=== PATIENT | male | born 1955 | race Caucasian/White ===

== ENCOUNTER 2017-11-21 17:15 | Observation (INO) | payer OTHER ==
--- NOTE | 2017-11-21 18:01 | EDPHY ---
H & P Time Seen by Provider: 11/21/17 18:00 HPI/ROS: Chief complaint. High blood pressure, bloody nose HPI. 61-year-old male presents emergency department with nose bleed. Nosebleed started last night and he was able to stop it. It recurred twice this afternoon. He went to his physician's office for nose bleed and was found to be hypertensive. He has no history of hypertension. However several weeks ago he tried to give blood and his blood pressure was 150/108 so he was declined. He does not take any blood pressure medication. He is not on blood thinners. He has had no recent trauma to his nose. No recent URI symptoms. Last nosebleed was many years ago. No headache, visual symptoms, chest pain, difficulty breathing, abdominal pain. ROS Constitutional. no fever/chills, no weakness Eyes. no problems with vision ENT. Nosebleed Cardiovascular. no chest pain Respiratory. no shortness of breath, no cough Abdominal. no abdominal pain, no nausea/vomiting, no diarrhea . no problems urinating MS. no calf pain/swelling, no neck/back pain, no joint pain Skin. no rash Lymph. no swollen glands Neuro. no headache, no dizziness, no difficulty walking or with speech Past Medical/Surgical History: Denies past medical history Social History: , nonsmoker, no alcohol Smoking Status: Never smoked Physical Exam: General Appearance: Alert well-developed male moderate distress vital signs show heart rate 106 and blood pressure 207/141 Eyes: Pupils equal and round no pallor or injection. ENT, bleeding from right nares Respiratory: There are no retractions, lungs are clear to auscultation. Cardiovascular: Regular rate and rhythm. Gastrointestinal: Abdomen is soft and nontender, no masses, bowel sounds normal. Neurological: Awake and alert, sensory and motor exams grossly normal. Skin: Warm and dry, no rashes. Musculoskeletal: Neck is supple nontender. Extremities symmetrical, full range of motion. Psychiatric: Patient is oriented X 3, there is no agitation. Constitutional: Initial Vital Signs Temperature (C) 36.3 C 11/21/17 17:19 Heart Rate 106 H 11/21/17 17:19 Respiratory Rate 16 11/21/17 17:19 Blood Pressure 207/141 H 11/21/17 17:19 O2 Sat (%) 96 11/21/17 17:19 O2 Delivery Mode Room Air Allergies/Adverse Reactions: No Known Allergies Allergy (Unverified 11/21/17 17:18) Home Medications: Medication Instructions Recorded Advil 11/21/17 Aspirin 11/21/17 Medical Decision Making Procedures: IV normal saline Clots are removed from patient's nose by the patient giving firm blow. 2 sprays of Jorge Luis-Synephrine nose spray placed in each nostril. Cotton ball soaked in cocaine solution is placed in each nostril. Visualization of the posterior pharynx shows no blood down the back of the throat. The cotton balls are removed. There is macerated tissue that is oozing on the medial septum right nares. No discrete area of bleeding to cauterize. A rhino rocket was placed. It is filled with 3 cc of normal saline. Bleeding is controlled ED Course/Re-evaluation: Re-evaluation at 6:20 a.m. P.m. Patient's blood pressure is 200/121. He will be given IV labetalol and drip. After the labetalol bolus his pressure is 160/100. He is placed on a drip. We will try to keep his diastolic about 95-100 currently. The patient, his , and I discussed treatment plan including recommendation for admission. He expresses understanding and agreement I consulted discussed case with Dr. Dale, hospitalist, who agrees to the admission I consulted discussed the case with Dr. Multani, ENT who will see the patient in consultation Differential Diagnosis: Nose bleed that is likely due to urgent hypertension. Otherwise no obvious end- organ failure. Bleeding from the nose is been controlled. Blood pressure has been controlled also - Data Points Laboratory Results: Laboratory Results 11/21/17 17:30 11/21/17 17:30 11/21/17 11/21/17 11/21/17 17:30 17:30 17:30 WBC 8.33 10^3/uL 10^3/uL (3.80-9.50) RBC 5.07 10^6/uL 10^6/uL (4.40-6.38) Hgb 16.1 g/dL g/dL (13.7-17.5) Hct 45.3 % % (40.0-51.0) MCV 89.3 fL fL (81.5-99.8) MCH 31.8 pg pg (27.9-34.1) MCHC 35.5 g/dL g/dL (32.4-36.7) RDW 12.4 % % (11.5-15.2) Plt Count 305 10^3/uL 10^3/uL (150-400) MPV 9.3 fL fL (8.7-11.7) Neut % (Auto) 63.9 % % (39.3-74.2) Lymph % (Auto) 22.4 % % (15.0-45.0) [place] % (Auto) 9.5 % % (4.5-13.0) Eos % (Auto) 3.0 % % (0.6-7.6) Baso % (Auto) 0.7 % % (0.3-1.7) Nucleat RBC Rel Count 0.0 % % (0.0-0.2) Absolute Neuts (auto) 5.32 10^3/uL 10^3/uL (1.70-6.50) Absolute Lymphs (auto) 1.87 10^3/uL 10^3/uL (1.00-3.00) Absolute Monos (auto) 0.79 10^3/uL 10^3/uL (0.30-0.80) Absolute Eos (auto) 0.25 10^3/uL 10^3/uL (0.03-0.40) Absolute Basos (auto) 0.06 10^3/uL 10^3/uL (0.02-0.10) Absolute Nucleated RBC 0.00 10^3/uL 10^3/uL (0-0.01) Immature Gran % 0.5 % % (0.0-1.1) Immature Gran # 0.04 10^3/uL 10^3/uL (0.00-0.10) PT 13.3 SEC SEC (12.0-15.0) INR 0.99 (0.83-1.16) APTT 28.7 SEC SEC (23.0-38.0) Sodium 142 mEq/L mEq/L (135-145) Potassium 3.9 mEq/L mEq/L (3.5-5.2) Chloride 107 mEq/L mEq/L (97-110) Carbon Dioxide 21 mEq/l L mEq/l (22-31) Anion Gap 14 mEq/L mEq/L (8-16) BUN 24 mg/dL H mg/dL (7-23) Creatinine 0.9 mg/dL mg/dL (0.7-1.3) Estimated GFR > 60 Glucose 91 mg/dL mg/dL (70-100) Calcium 9.2 mg/dL mg/dL (8.5-10.4) Troponin I 0.032 ng/mL ng/mL (0.000-0.034) Medications Given: Labetalol HCl 200 mg/ Sodium (Chloride) 200 mls @ 0 mls/hr IV CONT ISAURO; As Directed PRN Reason: Protocol Stop: 05/20/18 18:29 Last Admin: 11/21/17 19:28 Dose: 200 mls Discontinued Medications Sodium Chloride (Ns) 1,000 mls @ 0 mls/hr IV EDNOW ONE; Wide Open PRN Reason: Protocol Stop: 11/21/17 18:15 Last Admin: 11/21/17 19:03 Dose: 1,000 mls Labetalol HCl (Trandate Injection) 20 mg IVP EDNOW ONE Stop: 11/21/17 18:23 Last Admin: 11/21/17 19:02 Dose: 20 mg Oxymetazoline HCl (Afrin Nasal [place]) 2 sprays EACHNARE EDNOW ONE Stop: 11/21/17 18:16 Last Admin: 11/21/17 19:08 Dose: 2 spray Silver Nitrate/Potassium Nitrate (Silver Nitrate Applicator) 1 each TP EDNOW ONE Stop: 11/21/17 18:16 Last Admin: 11/21/17 19:08 Dose: 1 each Departure - Departure Disposition: [facility] Inpatient Acute Clinical Impression: Hypertensive urgency, Acute anterior epistaxis Condition: Good Referrals: Taryn Sanabria PA [Primary Care Provider] - As per Instructions
[2017-11-21] MEDS ORDERED: OXYMETAZOLINE 30 ML NASAL SPRAY ONE (18:10)
[2017-11-21] MEDS ORDERED: SILVER NITRATE APPLICATOR 1 APPL TP ONE ×2 (18:10→18:15)
[2017-11-21] MEDS ORDERED: COCAINE HCL 4% 4 ML BTL TP ONE ×2 (18:12→18:15)
[2017-11-21] MEDS ORDERED: NS 1,000 ML IV ONE (18:14)
[2017-11-21] MEDS ORDERED: OXYMETAZOLINE 30 ML NASAL SPRAY EACHNARE ONE (18:15)
[2017-11-21] MEDS ORDERED: LABETALOL HCL 5 MG/ML 20 ML MDV IVP ONE (18:22)
[2017-11-21 18:25] LABS: PLATELET COUNT 305 10^3/uL (150-400)
[2017-11-21] MEDS ORDERED: LABETALOL HCL 200 MG in D5W 200 ML IV SCH (18:30)
[2017-11-21 18:32] LABS: INR 0.99 (0.83-1.16); PROTIME(PATIENT) 13.3 SEC (12.0-15.0)
[2017-11-21] MEDS ORDERED: NS IV SCH (19:30)
[2017-11-21] MEDS ORDERED: LABETALOL HCL IV SCH (19:30)
--- NOTE | 2017-11-21 19:52 | CPEKG ---
Heart Rate: 67 RR Interval: 896 P-R Interval: 188 QRSD Interval: 106 QT Interval: 424 QTC Interval: 448 P Buxton: 33 QRS Buxton: -45 T Wave Buxton: 29 EKG Severity - ABNORMAL ECG - EKG Impression: SINUS RHYTHM EKG Impression: MULTIPLE ATRIAL PREMATURE COMPLEXES EKG Impression: LEFT ANTERIOR FASCICULAR BLOCK EKG Impression: PROBABLE LEFT VENTRICULAR HYPERTROPHY Electronically Signed By: Mateo Oseguera 21-Nov-2017 21:06:33
[2017-11-21] MEDS ORDERED: ONDANSETRON DISINTEGRATING 4 MG TAB PO PRN (19:56)
[2017-11-21] MEDS ORDERED: ONDANSETRON 4 MG/2 ML VIAL IVP PRN (19:56)
--- NOTE | 2017-11-22 00:15 | GHP ---
[f rep st] HISTORY AND PHYSICAL DATE OF ADMISSION: 11/21/2017 CHIEF COMPLAINT: Epistaxis and hypertensive urgency. HISTORY OF PRESENT ILLNESS: 61-year-old male with history of knee osteoarthritis, gout, prior hypertension, presenting with noseb leed. He said this started last night. He stuffed tissue up his nose and it resolved within 15 veronica lizett. He then went to [place] today for an appointment and was at [employer] when his nose st arted trickling. He went to the parking lot, laid back and it stopped. The bleed restarted again wh en he was at his client's office, so he went to his primary care physician. There, he was found to b e hypertensive and sent to the emergency room. He went to donate blood last week, but was declined d ue to elevated blood pressure of 187/108, per his report. Denies chest pain, headache, shortness of breath, lower extremity swelling. Complains of bilateral k nee pain, especially when skiing. He takes at least 4 Advil a day. He started taking a baby aspirin 3 months ago. Was hypertensive in the ER to 207/141. Per clinic review, he did have hypertension in 2013 with diastolic greater than 100. Most recently i n June, systolic was running 130s to 140s. REVIEW OF SYSTEMS: I completed a 10-point review of systems. Negative except as noted in History of Present Illness. PAST MEDICAL HISTORY: Gout, knee osteoarthritis, hypertension not treated. I reviewed his clinic re cords showing that he was hypertensive with diastolics greater 100 in 2013, but most recently systoli cs have been 130s to 140s. PAST SURGICAL HISTORY: Two nose surgeries, a deviated septum. FAMILY HISTORY: Mother with heart issues. Dad of brain aneurysm. HOME MEDICATIONS: 1. Baby aspirin 81 mg daily. 2. Advil 200 mg, at least 4 times a day. He has been doing this for a long time. ALLERGIES: None. PHYSICAL EXAMINATION: VITAL SIGNS: Temperature 36.3, blood pressure 207/41, most recently 164/104, heart rate 70, respirations 18, 95% on room air. GENERAL: Overweight male sitting up in bed, no acu te distress. Anxious. HEENT: Packing in right naris with dried blood. CV: Regular rate and rhyth m. No murmurs, gallops, or rubs. No lower extremity edema. LUNGS: Clear to auscultation bilateral ly. ABDOMEN: Soft, nontender, nondistended. Positive bowel sounds. : No Christine. MUSCULOSKELETA L: 5/5 upper and lower extremity strength. NEUROLOGIC: 2-12 intact. PSYCH: Alert and oriented x3 next. LABS: WBC is 8, hemoglobin 16, hematocrit 45, platelets 305. Coags within normal. Sodium 142, pota ssium 3.9, chloride 107, BUN 24, creatinine 0.9, glucose 91, calcium 9.2. Troponin 0.032. EKG personally reviewed by me: LVH, ST flattening in 2 and 3. ASSESSMENT AND PLAN: 1. Epistaxis: Received a cocaine solution in each nostril, rhino rocket was placed. Dr. Rangel shaw ENT will see patient. 2. Hypertensive urgency: Systolics greater than 200 at admission. When blood pressure dropped to 1 40s, patient did not feel well. Suspect this has been ongoing. He does have a history in the past b ut was not treated. Will treat with p.r.n. antihypertensive. Will start an oral agent in the mornin g. Do not want to drop MAP greater than 25%. I advised him to stop Advil as this could be a cause f or his hypertension. There is evidence of LVH on EKG. He will be monitored in the PCU. 3. Osteoarthritis of knees: Recommend icing and Tylenol. 4. Diet: Regular. 5. Deep venous thrombosis prophylaxis: Sequential compression devices. DISPOSITION: Patient warrants observation/admission given acute epistaxis warranting ENT evaluation and cardiac monitoring for hypertension. /[id number]/MODL
[2017-11-22] MEDS: hydrALAZINE 20 MG/ML VIAL IVP PRN ×2 (04:36→10:27)
[2017-11-22] MEDS: ACETAMINOPHEN 325 MG TAB PO PRN ×2 (07:55→12:48)
[2017-11-22] MEDS ORDERED: LISINOPRIL 10 MG TAB PO SCH (09:00)
--- NOTE | 2017-11-22 12:10 | ASMTCASEMG ---
Living Arrangements What is your living Answers: With Spouse arrangement? Who do you live with? Type Of Residence What kind of residence do Answers: House you live in? Discharge Plan Comments Coordination Status Comments Notes: Pts case discussed in tx rounds this AM. Pt is a 61 y/o man admitted for hypertensive urgency and epistaxis. Pt will most likely d/c independent when medically stable. No therapies ordered at this time. CM available for changes. Plan: Independent Date Signed: 11/22/2017 12:10 PM Electronically Signed By:ELLE Lima
[2017-11-22] MEDS ORDERED: hydrALAZINE 20 MG/ML VIAL IVP PRN (13:17)
[2017-11-22 13:51] VITALS: BP 183/96; PULSE 92; RESP 17; TEMP 98.2; O2SAT 97
--- NOTE | 2017-11-22 15:27 | GDS ---
[f rep st] DISCHARGE SUMMARY DISCHARGE DIAGNOSES: 1. Epistaxis. 2. Hypertensive crisis. HISTORY: The patient is a 61-year-old male who presented with uncontrolled epistaxis. He had nasal packing in the emergency room. Blood pressure was found to be extremely elevated with systolic blood pressure sometimes greater than 200. He had tried to give blood about 1 week ago and was denied as he was too hypertensive and was just starting to follow up with his primary care doctor regarding lik tushar new-onset essential hypertension. He was admitted to the hospital under observation and had no recurrence of bleeding from his nasal pa cking. He initially received IV labetalol, but then has now been transitioned to oral lisinopril wit h adequate control for the short term. He will follow up closely with primary care for ongoing hyper tension management. He will discharge on 20 mg p.o. daily of lisinopril. He will discontinue aspiri n and Advil. I have spoken with Sydnee De in ENT, and they did not think they needed to do an inpat ient consultation as he has stopped bleeding, but will see him closely in the office. The nasal pack ing needs to stay a minimum of 3-5 days, potentially longer, 5-7 days, if his blood pressure continue s to remain uncontrolled. DISCHARGE MEDICATIONS: Please see computerized record for a full detailed list. New medications: L isinopril 20 mg p.o. daily. Discontinued medications: Aspirin 81 mg p.o. daily and Motrin 400 mg p.o. b.i.d. ADDITIONAL DISCHARGE INSTRUCTIONS: 1. Follow up with Sydnee De, 3-5 days. 2. Follow up with Taryn Clancy, 3-5 days, primary care. 3. Greater than 30 minutes' time spent arranging this discharge. Patient was seen and examined by me on the day of discharge. /[id number]/MODL
== END 2017-11-22 15:36 | disposition home or self-care (01) ==
LOC: INTOOBSV 19:42 → F2W 22:00
PROVIDERS: ADMIT Internal Medicine; ATTEND Internal Medicine
PROC: 2Y41X5Z Packing of Nasal Region using Packing Material (ICD-10-PCS; principal; 2017-11-21)
DX: R04.0 Epistaxis (principal); I16.9 Hypertensive crisis, unspecified; M10.9 Gout, unspecified
CPT/HCPCS: 30901; 93005; G0378; 96374; J0360